=== PATIENT | male | born 1990 | race Caucasian/White ===

== ENCOUNTER → 2020-04-20 | Outpatient (CLI) | payer OTHER, SELFPAY ==
[2020-04-20 09:24] VITALS: BMI 30.6
== END | disposition home or self-care (01) ==
PROVIDERS: Referring Provider Physician Assistant Surgical; Visit Provider Physician Assistant Surgical
DX: U07.1 COVID-19 (principal)
CPT/HCPCS: 87635; U0003

== ENCOUNTER → 2020-12-15 14:17 | Outpatient (CLI) | payer OTHER, SELFPAY ==
[2020-04-20 09:24] VITALS: BMI 30.6
[2020-12-15 15:07] LABS: Vitamin D,25 Hydroxy 65.7 ng/mL
== END ==
DX: E55.9 Vitamin D deficiency, unspecified (principal); S82.202 Unspecified fracture of shaft of left tibia; S82.4 Fracture of shaft of fibula; S82.202N Unspecified fracture of shaft of left tibia, subsequent encounter for open fracture type IIIA, IIIB, or IIIC with nonunion
CPT/HCPCS: 36415; 82306

== ENCOUNTER → 2021-01-20 11:07 | Outpatient (CLI) | payer OTHER, SELFPAY ==
[2021-01-20 12:18] LABS: Absolute Lymphocyte Count 2.09 X10^3/uL (0.83-4.51); Absolute Neutrophil Count 4.4 X10^3/uL (2.0-7.7); Basophil# 0.05 X10^3/uL; Basophil% 0.7 % (0-1); Eosinophil# 0.36 X10^3/uL; Eosinophils% 4.8 % (0-5); Hematocrit 48.9 % (40-54); Hemoglobin 16.6 g/dL (13.0-16.5); Lymphocyte # 2.09 X10^3/ul (0.83-4.51); Mean Corp Hgb Conc 33.9 g/dL (32-36); Mean Corpuscular Hgb 29.9 pg (27.0-32.0); Mean Corpuscular Volume 87.9 fL (80-94); Mean Platelet Vol. 12.5 fl (6.2-12.0); Monocyte# 0.55 X10^3/uL; Monocyte% 7.4 % (0-10); NRBC Flagged by Analyzer 0 % (0-5); Neutrophil # 4.37 X10^3/uL (2.7-7.7); Neutrophil % 58.4 % (47-70); Platelet Count 185 K/mm3 (150-450); RBC Distribution Width CV 12.4 % (11.6-14.6); RBC Distribution Width SD 40.5 fl (35.1-43.9); Red Blood Count 5.56 M/mm3 (4.6-6.2); White Blood Count 7.5 K/mm3 (4.4-11.0)
[2021-01-20 12:33] LABS: CRP < 2.90 mg/L (0.0-3.0)
[2021-01-20 12:34] LABS: Vitamin D,25 Hydroxy 60.5 ng/mL
[2021-01-20 12:47] LABS: Erythrocyte Sedimentation Rate 6 mm/hr (0-20)
== END ==
PROVIDERS: Referring Provider Orthopaedic Surgery; Visit Provider Orthopaedic Surgery
DX: S82.202 Unspecified fracture of shaft of left tibia (principal); S82.4 Fracture of shaft of fibula
CPT/HCPCS: 36415; 82306; 85025; 85652; 86140